=== PATIENT | male | born 1995 | race Caucasian/White ===

== ENCOUNTER 2017-09-17 18:00 | Inpatient (IN) | payer BC ==
[2017-09-17 18:46] LABS: ABS Basophils 0.1 10^3/ul (0-0.2); ABS Eosinophils 0.1 10^3/ul (0-0.6); ABS Lymphocytes 1.9 10^3/ul (1.0-4.8); ABS Monocytes 0.6 10^3/ul (0-0.8); ABS Neutrophils 4.8 10^3/ul (1.5-7.7); ABS Nucleated RBC 0 10^3/ul; Eosinophil % 1.1 % (0-6); Hematocrit 46 % (42-52); Lymphocyte % 25.1 % (25-47); Mean Corpuscular HGB Conc 35 g/dl (31-36); Mean Corpuscular Hemoglobin 29 pg (27-31); Mean Corpuscular Volume 84 fL (80-94); Nucleated Red Blood Cells % 0.1; Platelet Count 289 10^3/ul (150-450); Red Blood Count 5.49 10^6/ul (4.0-5.4); Red Cell Distribution Width 13 % (10.5-15); White Blood Count 7.5 10^3/ul (3.5-10.8)
[2017-09-17 19:07] LABS: EGFR Non-African American 100.9 (>60)
[2017-09-17 20:06] LABS: Urine Appearance Clear; Urine Blood 1+ (Negative); Urine Color Colorless; Urine Ketones Trace (Negative); Urine Protein Negative (Negative); Urine Specific Gravity 1.002 (1.010-1.030); Urine Urobilinogen Negative (Negative)
[2017-09-17] MEDS: Nicotine Inhaler* 10 MG AMP INH ONE (20:16)
[2017-09-17] MEDS: Mouth Piece, Nicotine* 1 EACH CARTRIDGE INH PRN (20:17)
[2017-09-18] MEDS ORDERED: LORazepam TAB(*) 1 MG PO ONE (00:15)
[2017-09-18] MEDS ORDERED: Nicotine Inhaler* 10 MG AMP ONE (00:48)
[2017-09-18] MEDS: Nicotine Inhaler* 10 MG AMP INH ONE (00:54)
[2017-09-18] MEDS ORDERED: Mouth Piece, Nicotine* 1 EACH CARTRIDGE INH ONE (01:49)
--- NOTE | 2017-09-18 08:09 | ED ---
I, Sabrina Stevenson, scribed for Louisa Duran MD on 09/18/17 at 0113 . Progress - Progress Note Progress Note: Patient is signed out from Dr. Velez. Upon initial evaluation at 00:50, patient is pacing and dancing. He admits that he has not slept in days. Also admits to taking drugs. Has flight of ideas. Says he wants to watch TV and stay awake. PE: Pt alert, flight of ideas, cooperative. HEENT: neg Neck supple Cor S1 S2 Lungs clear Abd benign Extrem: no injury, moves all extrem well. Neuro: A O x 3, no focal deficit. Course/Dx - Course Course Of Treatment: Pt given ativan 2mg po at 00:54 on 09/19/27 to try to help him sleep. Patient will be signed out to Dr. Wilkins at shift change. 09/18/17 0700, pending MHE. - Diagnoses Provider Diagnoses: Manic behavior Discharge - Sign-Out/Discharge Documenting (check all that apply): Sign-Out Patient Signing out patient TO: Cuauhtemoc Wilkins - Shift change 09/18/17 0700 - Discharge Plan Condition: Stable Referrals: [facility] [Primary Care Provider] - - Billing Disposition and Condition Condition: STABLE The documentation as recorded by the Graham perez Tiffany accurately reflects the service I personally performed and the decisions made by me, Louisa Duran MD.
--- NOTE | 2017-09-18 09:15 | PN ---
ED Flex Patient Progress Note Date of Service: 09/17/17 Subjective: This is a 21 year-old M who is pending admission to [facility] Unit / transfer to another psychiatric facility / discharge to home / or being observed secondary to bizarre, paranoid behavior. Pt. examined at 0910. He is sleeping comfortably. Social work states that pt. was awake all night and fell asleep around 0500. He still needs to be evaluated by psychiatry. Objective: Vitals: Most recent vital signs documented below. General NAD, Alert and oriented x3. Laboratory: Current laboratory results documented below. Assessment: Plan: Pending psychiatric or medical consultation to observe / transfer / admit / discharge will follow up daily . Vital Signs Temp Pulse Resp BP Pulse Ox 99.9 F 90 16 131/91 97 09/17/17 23:42 09/17/17 23:42 09/18/17 00:54 09/17/17 23:42 09/17/17 23:42 Lab Results - Entire Visit 09/17/17 09/17/17 09/17/17 18:40 18:40 18:26 WBC 7.5 RBC 5.49 H Hgb 16.0 Hct 46 MCV 84 MCH 29 MCHC 35 RDW 13 Plt Count 289 MPV 8.0 Neut % (Auto) 64.9 Lymph % (Auto) 25.1 [place] % (Auto) 8.2 H Eos % (Auto) 1.1 Baso % (Auto) 0.7 Absolute Neuts (auto) 4.8 Absolute Lymphs (auto) 1.9 Absolute Monos (auto) 0.6 Absolute Eos (auto) 0.1 Absolute Basos (auto) 0.1 Absolute Nucleated RBC 0 Nucleated RBC % 0.1 Sodium Potassium Chloride Carbon Dioxide Anion Gap BUN Creatinine Est GFR ( Amer) Est GFR (Non-Af Amer) BUN/Creatinine Ratio Glucose Calcium Total Bilirubin AST ALT Alkaline Phosphatase Total Protein Albumin Globulin Albumin/Globulin Ratio TSH Urine Color Colorless Urine Appearance Clear Urine pH 7.0 Ur Specific Brinkley 1.002 L Urine Protein Negative Urine Ketones Trace A Urine Blood 1+ A Urine Nitrate Negative Urine Bilirubin Negative Urine Urobilinogen Negative Ur Leukocyte Esterase Negative Urine WBC (Auto) Trace(0-5/hpf) Urine RBC (Auto) Trace(0-2/hpf) Urine Bacteria Absent Urine Glucose Negative Salicylates Urine Opiates Screen None detected Acetaminophen Ur Barbiturates Screen None detected Ur Phencyclidine Scrn None detected Ur Amphetamines Screen None detected U Benzodiazepines Scrn None detected Urine Cocaine Screen None detected U Cannabinoids Screen None detected Serum Alcohol 09/17/17 18:26 WBC RBC Hgb Hct MCV MCH MCHC RDW Plt Count MPV Neut % (Auto) Lymph % (Auto) [place] % (Auto) Eos % (Auto) Baso % (Auto) Absolute Neuts (auto) Absolute Lymphs (auto) Absolute Monos (auto) Absolute Eos (auto) Absolute Basos (auto) Absolute Nucleated RBC Nucleated RBC % Sodium 139 Potassium 3.9 Chloride 104 Carbon Dioxide 26 Anion Gap 9 BUN 11 Creatinine 0.96 Est GFR ( Amer) 129.8 Est GFR (Non-Af Amer) 100.9 BUN/Creatinine Ratio 11.5 Glucose 129 H Calcium 9.5 Total Bilirubin 0.80 AST 17 ALT 11 Alkaline Phosphatase 62 Total Protein 7.5 Albumin 4.9 Globulin 2.6 Albumin/Globulin Ratio 1.9 TSH 1.84 Urine Color Urine Appearance Urine pH Ur Specific Brinkley Urine Protein Urine Ketones Urine Blood Urine Nitrate Urine Bilirubin Urine Urobilinogen Ur Leukocyte Esterase Urine WBC (Auto) Urine RBC (Auto) Urine Bacteria Urine Glucose Salicylates < 2.50 Urine Opiates Screen Acetaminophen < 15 Ur Barbiturates Screen Ur Phencyclidine Scrn Ur Amphetamines Screen U Benzodiazepines Scrn Urine Cocaine Screen U Cannabinoids Screen Serum Alcohol < 10
--- NOTE | 2017-09-18 10:10 | ED ---
Kameron Deshpande Angela, scribed for Bobby Velez on 09/17/17 at 1854 . Psychiatric Complaint - HPI Summary HPI Summary: This pt is a 21 y/o male presenting to [facility] via military police officer for a 9.45. Police reports the pt has been acting manic and bizarre for the past 24 hours. Per director social welfare note, pt was involved "in a fraternity hazing experiment no sleep for 24 hours." Pt currently reports he feels tired and fatigued. He states he went to the [employer] building today and called his mother. Pt states he is mildly anxious. Denies SI, HI, auditory or visual hallucinations. Denies any drug use. - History Of Current Complaint Chief Complaint: EDMentalHealth Time Seen by Provider: 09/17/17 18:17 Hx Obtained From: Patient Onset/Duration: Lasting Hours, Still Present Timing: Hours Severity Currently: Moderate Character: Anxious Aggravating Factor(s): Other - no sleep for 24 hours Alleviating Factor(s): Nothing Associated Signs And Symptoms: Positive: Sleep Disturbance. Negative: Hostile, Confused, Hallucinating, Paranoid Behavior Has Suicidal: Denies: Thoughts, With A Plan Has Homicidal: Denies: Thoughts, With A Plan - Allergies/Home Medications Allergies/Adverse Reactions: Allergies Allergy/AdvReac Type Severity Reaction Status Date / Time ciprofloxacin [From Cipro] Allergy Hives Verified 09/17/17 20:00 Home Medications: Home Medications Amphetamine MIXED SALTS TAB* [Adderall TAB*] 20 mg PO DAILY 09/17/17 [History Confirmed 09/17/17] PMH/Surg Hx/FS Hx/Imm Hx Endocrine/Hematology History: Denies: Hx Diabetes Cardiovascular History: Denies: Hx Hypertension Infectious Disease History: No Infectious Disease History: Denies: Traveled Outside the [place] in Last 30 Days - Family History Known Family History: Positive: Diabetes, Other - Cancer - Social History Alcohol Use: None Substance Use Type: Reports: None Smoking Status (MU): Never Smoked Tobacco Review of Systems Positive: Fatigue. Negative: Fever, Chills Cardiovascular: Negative Respiratory: Negative Gastrointestinal: Negative Genitourinary: Negative Musculoskeletal: Negative Psychological: Other - acting bizarre, manic Positive: Anxious. Negative: Other - SI, HI, auditory or visual hallucinations All Other Systems Reviewed And Are Negative: Yes Physical Exam - Summary Physical Exam Summary: Appearance: Well appearing, no pain distress Skin: warm, dry, reflects adequate perfusion Head/face: normal Eyes: EOMI, CHAUNCEY ENT: normal Neck: supple, nontender Respiratory: CTA, breath sounds present Cardiovascular: RRR, pulses symmetrical Abdomen: nontender, soft Bowel: present Musculoskeletal: normal, strength/ROM intact Neuro: normal, sensory motor intact, A&Ox3 Psych: anxious Triage Information Reviewed: Yes Vital Signs On Initial Exam: Initial Vitals Temp Pulse Resp BP Pulse Ox 99.3 F 82 20 127/82 97 09/17/17 18:08 09/17/17 18:08 09/17/17 18:08 09/17/17 18:08 09/17/17 18:08 Vital Signs Reviewed: Yes Diagnostics - Vital Signs Vital Signs Temp Pulse Resp BP Pulse Ox 09/17/17 18:08 99.3 F 82 20 127/82 97 - Laboratory Lab Results: Lab Results 09/17/17 Range/Units 18:26 WBC 7.5 (3.5-10.8) 10^3/ul RBC 5.49 H (4.0-5.4) 10^6/ul Hgb 16.0 (14.0-18.0) g/dl Hct 46 (42-52) % MCV 84 (80-94) fL MCH 29 (27-31) pg MCHC 35 (31-36) g/dl RDW 13 (10.5-15) % Plt Count 289 (150-450) 10^3/ul MPV 8.0 (7.4-10.4) um3 Neut % (Auto) 64.9 (38-83) % Lymph % (Auto) 25.1 (25-47) % [place] % (Auto) 8.2 H (0-7) % Eos % (Auto) 1.1 (0-6) % Baso % (Auto) 0.7 (0-2) % Absolute Neuts (auto) 4.8 (1.5-7.7) 10^3/ul Absolute Lymphs (auto) 1.9 (1.0-4.8) 10^3/ul Absolute Monos (auto) 0.6 (0-0.8) 10^3/ul Absolute Eos (auto) 0.1 (0-0.6) 10^3/ul Absolute Basos (auto) 0.1 (0-0.2) 10^3/ul Absolute Nucleated RBC 0 10^3/ul Nucleated RBC % 0.1 Result Diagrams: 09/17/17 18:26 09/17/17 18:26 Lab Statement: Any lab studies that have been ordered have been reviewed, and results considered in the medical decision making process. Course/Dx - Course Assessment/Plan: Pt is a 21 y/o male presenting to [facility] via military police officer for a 9.45. Police reports the pt has been acting manic and bizarre for the past 24 hours. Pt is medically cleared at 19:42. He is awaiting MHE. At this time mental health evaluation is still pending. Pt will be signed out to Dr. Duran, pending disposition, awaiting MHE. - Differential Dx/Clinical Impression Provider Diagnosis: Acute psychosis Discharge - Sign-Out/Discharge Documenting (check all that apply): Sign-Out Patient Signing out patient TO: Louisa Duran - Discharge Plan Condition: Stable Discharge Disposition Comment: signed out to Dr. Duarn, pending disposition, awaiting MHE Referrals: [facility] [Primary Care Provider] - The documentation as recorded by the Kameron perez Angela accurately reflects the service I personally performed and the decisions made by , Bobby Velez.
--- NOTE | 2017-09-18 14:58 | ED ---
Silvia Deshpande Elizabeth, patriciaibed for Bobby Velez on 09/18/17 at 1440 . Progress - Progress Note Progress Note: Patient is diagnosed with acute psychosis and will be admitted to [facility] [place] [place]. - Consult/PCP Time Called: 07:00 Course/Dx - Diagnoses Provider Diagnoses: Acute psychosis Discharge - Sign-Out/Discharge Documenting (check all that apply): Discharge/Admit/Transfer - Discharge Plan Condition: Stable Disposition: ADMITTED TO [facility] Referrals: [facility] [Primary Care Provider] - The documentation as recorded by the Silvia perez Elizabeth accurately reflects the service I personally performed and the decisions made by Agustin underwood Emmanuel.
[2017-09-18] MEDS: Nicotine Inhaler* 10 MG AMP INH PRN (19:41)
[2017-09-18] MEDS: risperiDONE TAB* 1 MG PO SCH (21:25)
[2017-09-19] MEDS: Nicotine Inhaler* 10 MG AMP INH PRN ×4 (11:20→21:54)
--- NOTE | 2017-09-19 16:39 | HP ---
HISTORY AND PHYSICAL: DATE OF ADMISSION: 09/18/17 IDENTIFYING DATA: Vinayak is a 21-year-old single white male, a senior at [employer], who was brought to the emergency department by law enforcement due to making gestures and raising a concern about his and others' safety in his class. HISTORY OF PRESENT ILLNESS AND REASON FOR HOSPITALIZATION : The patient reports that he is part of a fraternity called [employer] and stayed up entire night and beyond to do some projects and meetings related to politics. He then went to the class and made a hand gesture indicative of having a gun in his hands and making noise of an automatic weapon, which raised concern and his teacher tried to talk to him later and found that his thoughts were pretty disorganized, and they called police on him. He continues to maintain that he just wanted to scare one of his classmates, who was mimicking him or making some noise during a talk he was giving during the fraternity meeting that night. However, he denies any intention of bringing a gun into the class, also denies that he never possessed a gun. He states that his mind has been racing, which keeps him up all night. Most of the nights, he goes to sleep after 2:00 a.m. and wakes up around 7:30 or 8:00 a.m. to go to classes. There are times that he sleeps less than that, but feels well rested and claims that he does not need that much of sleep all the time. 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 It is scattered and talks about different things during the same conversation. He reports that he has been on Adderall since his renea years in high school, prescribed by his primary care physician. Later, he saw a psychiatrist who continued him on Adderall. He acknowledges that it makes him hyper, that is why he tries not to take it after hours, mostly after 5 :00 p.m. or during holidays and sometimes even during the weekends. He also experiences occasional visual hallucinations but denies auditory hallucinations. PAST PSYCHIATRIC HISTORY: This is is 2nd lifetime psychiatric hospitalization, first one in [place] ( Reported by his parents ) but he has been seeing a psychiatrist in [place] for ADHD and continues to see a nurse practitioner in this community, who is continuing him on the same medicine. 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 PAST MEDICAL HISTORY: Unremarkable. ALLERGIES: No known drug allergies. FAMILY HISTORY: He has 2 younger siblings, a brother and a sister, both of them where diagnosed with ADHD. Mternal Grand mother was diagnosed and treated for Bipolar D/O. He believes his father also has ADHD and his mother is okay. PERSONAL AND SOCIAL HISTORY: Vinayak is from [place] [place] [place]. After high school, he came to [place] with an intention to transfer to [employer]. He is majoring in photography and filming and wants to be a filmmaker in the future. He is currently involved in a romantic relationship and he is sexually active only when she is around. He lives in the community and goes to college, would not say much about his grades, but appears to be repeatedly getting in conflict with his classmates and teachers. PHYSICAL EXAMINATION GENERAL: At this time Vinayak is not in any physical distress. He is healthy looking, average height, average weight, white male, somewhat fidgety, restless , and makes frequent hand gestures. VITAL SIGNS: Vitals taken show blood pressure of 119/69, respirations 16, pulse 76, temperature 98.5 degrees Fahrenheit, pulse ox 100% on room air. HEENT: Head: Normocephalic, atraumatic. Eyes: PERRLA, EOMI. Clear conjunctivae. Ears: Normal and clean ear canals with intact tympanic membranes bilaterally. NECK: Supple with midline trachea. No lymphadenopathy, enlarged thyroid, or JVD. CHEST: Lungs are clear with good air entry bilaterally. No wheezing or rhonchi audible. CARDIOVASCULAR: Heart rate regular with S1 and S2 only. No murmurs or rubs audible. ABDOMEN: Flat, soft, nontender. No organomegaly. Positive bowel sounds in all quadrants. MUSCULOSKELETAL: Muscle strength normal, intact range of movement of all joints. Pulses good in all extremities. NEUROLOGICAL: Alert and oriented to time, place, and person. Cranial nerves II through XII intact. No focal deficits. MENTAL STATUS EXAMINATION: Appropriately dressed, poorly groomed, average height male, who appears to be healthy without any indication of any physical distress. He is fidgety and restless, makes frequent hand gestures indicative of shooting guns of that nature. He is alert and oriented to time, place, and person. His speech appears to be mildly pressured and circumstantial , needs frequent redirection to stay on the topic. Thought process is illogical and thought content appears to have some delusions such as his ability to be a politician and a leader and involvement in activities in the school. His attention and concentration appear to be fair to good. Intelligence appears to be average as evidenced by his vocabulary and fund of knowledge. Memory functions are intact in all spheres. He denies any suicidal ideation; however, unsure about homicidal ideation because he pauses during this question if he is thinking about hurting anyone in his class, and then states "no, I would never do that," after a brief pause. His insight and judgment are impaired. LABORATORY DATA: Included CBC with differential, CMP, urinalysis, and tox screen with urine drug screen. CBC shows a WBC count of 10.5, hemoglobin 12.4, hematocrit 36, platelet count 257. Rest unremarkable. CMP shows a serum sodium level of 137, potassium 3.7, chloride 103, carbon dioxide 28, BUN 11, creatinine 0.9. Urinalysis unremarkable. Tox screen negative. Urine drug screen negative for all street drugs. SUMMARY: This 21-year-old male with history of treatment only on an outpatient basis for ADHD presented to the emergency room, brought in by local law enforcement after he made hand gestures and made sound of automatic weapon in his class to scare one of his classmates according to his own reporting. He has been staying up for an extended period of time, [id number], and experiencing racing thoughts as well as delusions of grandeur. Although he denies any homicidal thoughts at this time, he made enough of gestures and sound of automatic weapon in his class to scare his classmates and possibly the teacher, who was concerned about his and others' safety. DIAGNOSTIC IMPRESSION: MENTAL HEALTH DIAGNOSES: Unspecified psychosis, rule out substance-induced psychosis, rule out substance-induced mood disorder, rule out schizophrenia. PHYSICAL HEALTH DIAGNOSIS: None. TREATMENT RECOMMENDATIONS: For now, Vinayak will remain hospitalized on behavioral science unit for his and others' safety. His code status will remain full. Supportive milieu, individual, and group therapy will be initiated and the patient will be encouraged to attend. Different treatment options including starting him on Risperdal as a routine medication was explained. Also, a plan to keep him off his attention deficit hyperactivity disorder meds, which is Adderall to keep that on hold at least for now. He verbalized his understanding and wants to try this plan, which means take Risperdal and keep his stimulants on hold until his assigned psychiatrist on the unit can decide whether to continue or discontinue his stimulants, which in my opinion has been causing mood dysregulation as well as psychosis. He may continue to do well on Risperdal and some major mood stabilizer in the future. I also have doubt about his diagnosis of ADHD; however, that needs to be done in a more methodical way than just giving him a diagnosis of ADHD only because of his lack of attention. All the nursing observations and my personal observation indicate more of mood dysregulation and hypomanic symptoms than attention deficit hyperactivity. [id number]/[facility] #: [id number] DALIA
[2017-09-19] MEDS: risperiDONE TAB* 1 MG PO SCH (20:27)
[2017-09-20] MEDS ORDERED: LORazepam TAB(*) 1 MG PO ONE (00:45)
[2017-09-20] MEDS ORDERED: LORazepam TAB(*) 1 MG ONE (00:49)
[2017-09-20] MEDS: Nicotine Inhaler* 10 MG AMP INH PRN ×2 (00:55→14:16)
--- NOTE | 2017-09-20 10:32 | ADMNOTE ---
History - Objective HPI: Psychiatric Attending History and Physical NAME: : AGE: PROVIDER: DATE OF ADMISSION: JUSTIFICATION FOR ADMISSION: CHIEF COMPLAINT: HISTORY OF THE PRESENT ILLNESS: PAST PSYCHIATRIC HISTORY: SUBSTANCE ABUSE HISTORY: PAST MEDICAL HISTORY: CURRENT MEDICATIONS: ALLERGIES: FAMILY PSYCHIATRIC HISTORY: FAMILY/PSYCHOSOCIAL HISTORY: REVIEW OF SYSTEMS: all noncontributory per hospitalist Dr. Mohr on / / PHYSICAL EXAMINATION: UNREMARKABLE (NORMAL PHYSICAL EXAMINATION) per hospitalist Dr. Mohr on / / . Patient MENTAL STATUS EXAMINATION: LABORATORY DATA: IMPRESSION: DIAGNOSES: PLAN: Plan - Treatment Plan Medications: Current Medications Device (Nicotine Mouth Piece*) 1 each INH .USE WITH NICOTROL PRN PRN Reason: CRAVING Last Admin: 09/17/17 20:17 Dose: 1 each Nicotine (Nicotine Inhaler*) 10 mg INH Q2H PRN PRN Reason: CRAVING Last Admin: 09/20/17 00:55 Dose: 10 mg Risperidone (Risperdal*) 1 mg PO BEDTIME MINH Last Admin: 09/19/17 20:27 Dose: 1 mg
--- NOTE | 2017-09-20 11:57 | PN ---
Subjective - Subjective Subjective: Psychiatric Attending Progress Note: interviewed patient and father separately and then together. Admission H and P reveiwed as well as nursing and physicians notes from over the weekend. Patient is a 21 yo IC magdaleno with a history of polysubstance abuse including marijuana, LSD, Xanax and prescribed adderall overuse. [facility] communications professional sw requested patient be brought to hospital for evaluation of 1 to 2 week history of mood lability(elation, irritability), pressured speech, decreased need for sleep, racing thoughts, and bizarre behaviors (singing, dancing, grabbing at the air) in public areas on campus. mental status acutely worsened 24 hours prior to being brought to the ED in the context of a fraternity hazing experiment which required patient deprive himself of sleep x 24 hours. [facility] checked on patient 3 times on day ASSOCIATE ART DIRECTOR due to psychomotor agitation and bizarre behaviors. According to parents Bron was in his usual state of mental health and they had no indication that he was unstable until a day ASSOCIATE ART DIRECTOR when they were notified by campus counselor. patient was pacing, restless, pressured, im pulsive, pushing boundaries, displayed accelerated psychomotor behavior in the Flex unit. He was initially unable to sleep staring at hands, dancing and pacing in the flex room. while watching TV he was mimicking the TV and firing finger guns playfully. His verbal responses were described as bizarre and irrelevant. patient ultimately fell asleep and slept 12 hours in flex unit and was admitted to [facility] wednesday late afternoon. on unit first day he was manic, disorganized, restless, excessively talkative, grabbing at the air, tangential, intrusive and argumentative but not aggressive, violent or professing danger to self. with risperdal on wednesday night patient slept 12 hours over night. woke up at 11 am but continued to be bizarre but coooperative with nursing. dancing, pacing, continuing to have VH, euphoric and grandiose. wednesday night unable to sleep. given ativan 1 mg at 1 am for sleep and slept until late this morning (11 hours total). PPH/substance history: per parents and patient. Siva struggled with attentional deficits, low self esteem, social awkwardness, difficulty making friends, poor impulse control since early chidlhood. grades were always inconsistent. began suffering with depression in high school saw therapist but never medication until 11 th grade when he was diagnosed with ADD by psychiatrist and started on Adderall XR 20 mg daily. also 5 to 10 IR in afternoon. patient admits that he would sell his Adderall. Marijuana use was heavy in high school and was abusing Xanax intermittently. Senior year began using LSD intermittently and drinking alcohol. Fresh year was using xanax, marijuana, LSD, Alcohol and overusing prescription Adderall. did poorly but passed first semester. did fairly well second semester. end of y ear [place] and had first hospitalization for jaime and psychosis similar to current presentation. felt to be drug induced and was sent to dual diagnosis PHP in [facility]. patient reports he was sober for about 6 weeks while in program. subsequently developed severe depression with SI and plan to jump off gorge. but no attempt. Was started on Prozac and Zyprexa and returned to [place]. saw counselor at [facility] and OFFICE EXECUTIVE Varsha Be for medication. medication was ultimately discontinued with exception of Adderall XR, adderall IR and clonidine for sleep. Patient admits to using LSD at least 5 times during sophmore year. States he has continued smoking pot, overusing adderall, and intermittently using LSD and Xanax, although he reports frequency has been low for all drugs. Urine tox negative in ED PMH none Allergies Cipro Social History: two siblings and parents all [employer] graduates. patient feels inferior to family members two sibs have ADHD. Mat GM has diagnosed Bipolar disrorder. no legal probelms. denies history of trauma, denies legal issues, has girlfriend who goes to school back in [place]. MSE: well dressed good hygiene inconsistent eye contact. indiscriminantly related. +psychomotor acccerleration symptoms including restlessness, pacing, waving arms purposely in air, excessive speech. Mood: euphoric, inflated. affect elevated amplitude, broad range. Thought process is tangential and circumstantial Thought content reveals: patient endorses racing thoughts, inability to fall asleep, decreased need for sleep, inflated self concept, increased preoccupation with gnosticism themes, grandiose thoughts, need to keep dancing and singing, perseveration with certain topics incluidng music videos. alert and oriented. highly distractible. cogntive exam not completed as patient could not tolerate it. insight partial. judgment: at present time is poor denies SI, HI intention or plan to harm self or others. denies paranoia. denies hearing voices or having visual hallucinations (other than hearing the music of his favorite songs in his head). Labs: reviewed and are normal including urine tox which is negative for all drugs of abuse Impression: my impression is that patient has bipolar disorder and is presenting with manic episode with psychotic features.which was likely unmasked by polysubstance use including use of LSD on 08/22/17 and use of cannabis on 09/10/2017. Plan: long discussion with patient and his father about my impression and recommendations which are that patient has serious drug addiction and comorbid bipolar disorder presenting with two episodes of jaime. told them that continued drug use could result in treatment refractory illness. discussed importance of sobriety and bipolar maintenance and abortive medication forbipolar mood swings. both father and patient gave informed consent to zuly mata. should not return to college this semester but complete finals when he recovers. my recommendation would be inpatient dur rehab program after mood is stabalized as an inpatient. MMPI and psych. eval. social work consultation. Plan - Plan Treatment Plan: Name: ESTELLA BENNETT Birthdate: 1995 [id number] Medications: Current Medications Device (Nicotine Mouth Piece*) 1 each INH .USE WITH NICOTROL PRN PRN Reason: CRAVING Last Admin: 09/17/17 20:17 Dose: 1 each Nicotine (Nicotine Inhaler*) 10 mg INH Q2H PRN PRN Reason: CRAVING Last Admin: 09/20/17 00:55 Dose: 10 mg Risperidone (Risperdal*) 1 mg PO BEDTIME [facility] Last Admin: 09/19/17 20:27 Dose: 1 mg
[2017-09-20] MEDS ORDERED: Divalproex ER TAB(*) 250 MG PO ONE ×2 (15:40→21:00)
[2017-09-20] MEDS: LORazepam TAB(*) 0.5 MG PO SCH (16:31)
[2017-09-21] MEDS: LORazepam TAB(*) 1 MG PO SCH ×2 (03:00→20:28)
[2017-09-21] MEDS: risperiDONE TAB* 1 MG PO SCH ×3 (03:00→20:28)
[2017-09-21] MEDS: Nicotine Inhaler* 10 MG AMP INH PRN ×5 (03:41→20:27)
[2017-09-21] MEDS: LORazepam TAB(*) 0.5 MG PO SCH ×2 (08:54→16:24)
[2017-09-21] MEDS ORDERED: Acetaminophen TAB* 325 MG PO PRN (10:42)
[2017-09-21] MEDS: Nicotine PATCH 7 MG/24 HR* PATCH TRANSDERM SCH (10:50)
--- NOTE | 2017-09-21 11:37 | PN ---
MHU: Group Therapy Note - Service Type Service Type: [id number] Group Psychotherapy - Cognitive Behavioral Group Therapy ( CBT):Patient presented in CBT programming as disorganized and disruptive in discussion and needed repeated redirection to attend to presented materials.
--- NOTE | 2017-09-21 12:50 | PN ---
Subjective - Subjective Subjective: Psychiatric Attending Progress Note: attending selective groups. Napped in the afternoon yesterday after receiving additional ativan and risperdal (which was increased yesterday due to ongoing manic symptoms). slept about 8 hours last night. Patient has attended some groups today. He continues to present as oddly related. overall psychomotor behavior has diminished considerably since yesterday. less pressured, less talkative, no longer pacing but able to remain still during entire interview today. more organized and less bizarre. appropriately responding today. no tangential or irrelevant responses. affect remains incongruent. clearly patient is exerting effort to suppress manic symptoms in order to appear better than he actually is. animal care worker and I met with Siva. I discussed my diagnostic impression that he has bipolar disorder type I and that drug use is increasing the severity of the disorder and ultimately will contribute to making his bipolar illness difficult to treat (the concept of treatment refractory illness). patient was also confronted with treatment recommendations which are that he not return to school but take Incompletes and make up his tests late summer. I also told patient that my recommendation was that he enter an inpatient drug rehab program for minimum of 30 days Patient's response was clearly not in favor of this. He told me that he wanted to return to school and the reason was because "all of my professors really like me" Patient was not capable of processing what was related in today's sesssion. He then cut the meeting short, stating he would like to delay the rest of the discussion until his mother arrives in the morning. He requested computer privelages so he could listen to music videos and the meeting ended with patient thanking me several times for making computer privelages available to himm Objective - Appearance Appearance: Well Developed/Nourished, Healthy Appearing Dysmorphic Features: No Hygiene: Normal Grooming: Well Kept - Behavior Psychomotor Activities: Normal Exhibits Abnormal Movement: No - Attitude and Relatedness Attitude and Relatedness: Psychotically Related Eye Contact: Fair - Speech Quality: Unpressured Latencies: Normal Quantity: Appropriate - Mood Patient's Decription of Mood: "Great" - Affect Observed Affect: Expansive Affect Consistent with: Euphoria - Thought Process Patient's Thought Process: Circumstantial Thought Content: No Passive Wish, No Suicidal Planning, No Homicidal Ideation, No Paranoid Ideation - Sensorium Type of Hallucinations: Visual: No, Auditory: No, Command: No - Level of Consciousness Level of Consciousness: Alert Orientation: Yes Intact, Yes Orientated to Time, Yes Orientated to Place, Yes Orientated to Person - Impulse Control Impulse Control: Impaired - Insight and Judgement Insight and Judgement: Poor - Medication Management Medication Management Adherence: Yes Assessment - Assessment Clinical Impression: 21 year old with bipolar I and polysubstance use admitted 2 days ago for one week history of acute jaime with psychotic features. patient is responding to combination of depakote ER, Risperdal and ativan. he [facility] for [facility] Plan - Plan Treatment Plan: Plan: family meeting to discuss d/c options continue med adjustment as needed VPA level in two days Risperdal 0.25 mg BId and 1 mg qhs ativan 0.5 mg BId and 1 mg QHS depakote ER 750 mg qhs Medications: Current Medications Acetaminophen (Tylenol Tab*) 650 mg PO Q4H PRN PRN Reason: PAIN Al Hydrox/Mg Hydrox/Simethicone (Maalox Plus*) 30 ml PO Q4H PRN PRN Reason: DYSPEPSIA Device (Nicotine Mouth Piece*) 1 each INH .USE WITH NICOTROL PRN PRN Reason: CRAVING Last Admin: 09/17/17 20:17 Dose: 1 each Divalproex Sodium (Depakote Er Tab(*)) 750 mg PO BEDTIME [facility] Lorazepam (Ativan Tab(*)) 0.5 mg PO BID@ [facility] Last Admin: 09/21/17 08:54 Dose: 0.5 mg Lorazepam (Ativan Tab(*)) 1 mg PO BEDTIME [facility] Last Admin: 09/21/17 03:00 Dose: Not Given Nicotine (Nicotine Inhaler*) 10 mg INH Q2H PRN PRN Reason: CRAVING Last Admin: 09/21/17 07:44 Dose: 10 mg Nicotine (Nicotine Patch 7 Mg/24 Hr*) 1 patch TRANSDERM DAILY [facility] Last Admin: 09/21/17 10:50 Dose: 1 patch Pharmacy Profile Note (Nicotine Patch Removal Note*) 1 note FOLLOW UP 2100 [facility] Risperidone (Risperdal*) 1 mg PO BEDTIME [facility] Last Admin: 09/21/17 05:03 Dose: 1 mg Risperidone (Risperdal) 0.25 mg PO BID@ [facility] Last Admin: 09/21/17 08:54 Dose: 0.25 mg
[2017-09-21] MEDS: Nicotine Patch Removal NOTE FOLLOW UP SCH (20:29)
[2017-09-21] MEDS ORDERED: Divalproex ER TAB(*) 250 MG PO SCH (21:00)
[2017-09-22] MEDS: risperiDONE TAB* 1 MG PO SCH ×3 (11:25→20:32)
[2017-09-22] MEDS: Nicotine PATCH 7 MG/24 HR* PATCH TRANSDERM SCH (11:26)
[2017-09-22] MEDS: LORazepam TAB(*) 0.5 MG PO SCH ×2 (11:28→15:59)
[2017-09-22] MEDS: Mouth Piece, Nicotine* 1 EACH CARTRIDGE INH PRN (11:49)
[2017-09-22] MEDS: Nicotine Inhaler* 10 MG AMP INH PRN ×3 (11:50→22:11)
--- NOTE | 2017-09-22 12:16 | PN ---
Subjective - Subjective Subjective: Psychiatric Attending Progress Note: continues to make gains daily. manic symptoms are remitting nicely with combination of Risperdal, Ativan and Depakote ER. Slept 13 hours last night. has been declining daytime ativan as it makes him sedated. otherwise has been taking all other meds. cooperative with nurses. no agitation. attending all groups. no bizarre behaviors today. no singing or dancing. no moving his fingers through the air indicating his euphoria when music is played. Met with patient alone today and his father subsequently joined us. mood much more stable today. no euphoria today. mood best described as hyperthymic which appears to be patient's baseline and is common mood state for patients with ADHD. thought process coherent, logical and organized. no tangentiality. no irrelevant or illogic constructs. continues to be hyperverbal, distractible, somewhat impulsive verbally, insecure, lacks confidence, compares himself to peers, never feels he neasures up, impusivity has resulted in difficulties initiating and maintaining friendships, somewhat disorganized, forgetful, and has trouble with follow through. These qualities all consistent with ADHD. fairly immature socially. tends to be a leader rather than a follower. discussed future d/c recommendations in session. father has arranged with Frederick for Siva to take make up exams in his classes in summer or later so he does not have to return to school which is my recommendation. I strongly recommend patient do inpatient drug rehab. He attended outpatient rehab IOP after first manic episode one year ago. He tells me that he was discharged from hospital last year on zyprexa. He saw a psychiatrist in [place] who stopped zyprexa and started him on prozac when he became severely depressed over the summer. Siva promised to remain sober and that he would follow up with therapist and medication provider. He has seen therapist infrequently over past year. He has seen Louisa Blum NP only a few times in order to get refills on his adderall and clonidine FAther confronted him with his failure to follow through father also not sure he wants pateint to return to parents are thinking that pateint should return home and attend local college for a year to prove that he can take care of his medical needs and abstain from drugs. I am in agreement with this plan. Objective - Appearance Appearance: Well Developed/Nourished Dysmorphic Features: No Hygiene: Normal Grooming: Well Kept - Behavior Psychomotor Activities: Abnormal-Increased Exhibits Abnormal Movement: No - Attitude and Relatedness Attitude and Relatedness: Cooperative Eye Contact: Good - Speech Quality: Unpressured Latencies: Normal Quantity: Appropriate - Mood Patient's Decription of Mood: "Great" - Affect Observed Affect: Expansive Affect Consistent with: Euphoria - Thought Process Patient's Thought Process: Goal Directed Thought Content: No Passive Wish, No Suicidal Planning, No Homicidal Ideation, No Paranoid Ideation - Sensorium Experiencing Hallucinations: No, Sensorium is Clear Type of Hallucinations: Visual: No, Auditory: No, Command: No - Level of Consciousness Level of Consciousness: Alert Orientation: Yes Intact, Yes Orientated to Time, Yes Orientated to Place, Yes Orientated to Person - Impulse Control Impulse Control: Intact - Insight and Judgement Insight and Judgement: Poor - Group Participation Particating in Group Activities: Yes - Medication Management Medication Management Adherence: Yes Assessment - Assessment Clinical Impression: 21 year old with bipolar I and polysubstance use admitted 5 days ago for one week history of acute jaime with psychotic features. patient is responding to combination of depakote ER, Risperdal and ativan. [facility]. Plan - Plan Treatment Plan: Plan: father leaving tomorrow and mother will take his place plan is to speak with mother by phone tomorrow to discuss discharge plans d/c ativan 0.5 mg BID depakote ER 750 mg daily to be changed to q dinner as Siva is having abdominal pain after taking it. Risperdal 0.5 mg BId and 1 mg QHS get VPA level tomorrow night will suggest parents consider [facility] which has a 30 day drug rehab recovery program.
[2017-09-22] MEDS: Al Hydrox/Mg Hydrox/Simet LIQ* 30 ML UDC PO PRN (14:57)
[2017-09-22] MEDS ORDERED: Divalproex ER TAB(*) 250 MG PO ONE (18:16)
[2017-09-22] MEDS: LORazepam TAB(*) 1 MG PO SCH (20:32)
[2017-09-22] MEDS: Nicotine Patch Removal NOTE FOLLOW UP SCH (20:33)
[2017-09-23] MEDS: Nicotine Inhaler* 10 MG AMP INH PRN ×5 (09:16→22:11)
[2017-09-23] MEDS: CMCS: Atomoxetine (NF) 40 MG CAP PO SCH (09:16)
[2017-09-23] MEDS: Nicotine PATCH 7 MG/24 HR* PATCH TRANSDERM SCH (09:17)
[2017-09-23] MEDS: risperiDONE TAB* 1 MG PO SCH ×3 (09:17→22:56)
--- NOTE | 2017-09-23 11:02 | PN ---
Subjective - Subjective Subjective: Psychiatric Attending Progress Note: significant remission of manic symptoms. continues with inappropriately elevated affect at time. an almost forced or excessive ardor. patient lacks insight about this but it is quite striking at times. thought process is logical and coherent. Patient remains elevated in his mood and affect. there remains a disconnect in [facility] with regard to the seriousness of current issues and the immediacy. He remains almost too agreeable and offers no resistance to the discharge plans which social professionals and I have recommended when meeting with him. However, to his parents and his friends (who visited him yesterday) he shares that he is not in favor of inpatient dual diagnosis program. Objective - Appearance Appearance: Well Developed/Nourished Dysmorphic Features: No Hygiene: Normal Grooming: Well Kept - Behavior Psychomotor Activities: Abnormal-Increased Exhibits Abnormal Movement: No - Attitude and Relatedness Attitude and Relatedness: Superficially Cooperative - Speech Quality: Unpressured Latencies: Normal Quantity: Appropriate - Mood Patient's Decription of Mood: "Great" - Affect Observed Affect: Expansive Affect Consistent with: Euphoria - Thought Process Patient's Thought Process: Coherent Thought Content: No Passive Wish, No Suicidal Planning, No Homicidal Ideation, No Paranoid Ideation - Sensorium Experiencing Hallucinations: No, Sensorium is Clear Type of Hallucinations: Visual: No, Auditory: No, Command: No - Level of Consciousness Level of Consciousness: Alert Orientation: Yes Intact, Yes Orientated to Time, Yes Orientated to Place, Yes Orientated to Person - Impulse Control Impulse Control: Tenuous - Insight and Judgement Insight and Judgement: Poor - Group Participation Particating in Group Activities: Yes - Medication Management Medication Management Adherence: Yes Assessment - Assessment Clinical Impression: 21 year old with bipolar I and polysubstance use admitted 6 days ago for acute jaime with psychotic features. patient is responding to combination of depakote ER, Risperdal and ativan. [facility] and appropriate discharge planning Plan - Plan Treatment Plan: Plan: father leaving tomorrow and mother will be flying in to take his place Family meeting has been scheduled with mother at 4 pm tomorrow Depakote ER 750 mg q dinner (no abdominal pain today) Risperdal 0.5 mg BId and 1 mg QHS VPA level, cbc, lft's tomorrow evening d/c recommendation will be for patient to be admitted to dual diagnosis residential inpatient program for young adults patient and father are aware and we will discuss this again with mother and patient at tomorrow's meeting. Medications: Current Medications Acetaminophen (Tylenol Tab*) 650 mg PO Q4H PRN PRN Reason: PAIN Al Hydrox/Mg Hydrox/Simethicone (Maalox Plus*) 30 ml PO Q4H PRN PRN Reason: DYSPEPSIA Last Admin: 09/22/17 14:57 Dose: 30 ml Atomoxetine HCl (Strattera (Nf)) 40 mg PO DAILY [facility] PRN Reason: Protocol Last Admin: 09/23/17 09:16 Dose: 40 mg Device (Nicotine Mouth Piece*) 1 each INH .USE WITH NICOTROL PRN PRN Reason: CRAVING Last Admin: 09/22/17 11:49 Dose: 1 each Divalproex Sodium (Depakote Er Tab(*)) 750 mg PO DAILY@17 [facility] Lorazepam (Ativan Tab(*)) 1 mg PO BEDTIME [facility] Last Admin: 09/22/17 20:32 Dose: 1 mg Nicotine (Nicotine Inhaler*) 10 mg INH Q2H PRN PRN Reason: CRAVING Last Admin: 09/23/17 09:16 Dose: 10 mg Nicotine (Nicotine Patch 7 Mg/24 Hr*) 1 patch TRANSDERM DAILY [facility] Last Admin: 09/23/17 09:17 Dose: 1 patch Pharmacy Profile Note (Nicotine Patch Removal Note*) 1 note FOLLOW UP 2100 [facility] Last Admin: 09/22/17 20:33 Dose: 1 note Risperidone (Risperdal*) 1 mg PO BEDTIME [facility] Last Admin: 09/22/17 20:32 Dose: 1 mg Risperidone (Risperdal*) 0.5 mg PO BID@09,16 [facility] Last Admin: 09/23/17 09:17 Dose: 0.5 mg
[2017-09-23] MEDS: Divalproex ER TAB(*) 250 MG PO SCH (16:46)
[2017-09-23] MEDS: Nicotine Patch Removal NOTE FOLLOW UP SCH (22:56)
[2017-09-23] MEDS: LORazepam TAB(*) 1 MG PO SCH (22:56)
[2017-09-24] MEDS: CMCS: Atomoxetine (NF) 40 MG CAP PO SCH (08:52)
[2017-09-24] MEDS: Nicotine PATCH 7 MG/24 HR* PATCH TRANSDERM SCH (08:53)
[2017-09-24] MEDS: risperiDONE TAB* 1 MG PO SCH ×3 (08:53→20:29)
[2017-09-24] MEDS: Nicotine Inhaler* 10 MG AMP INH PRN ×5 (10:40→20:45)
--- NOTE | 2017-09-24 12:42 | PN ---
Subjective - Subjective Subjective: Psychiatric Attending Progress Note: Patient slept well last night. attending all groups. no bizarre behaviors. mood remains inappropriately elevated affect with elevated amplitude, with a forced quality still too elevated. thought process is coherent and goal directed as well as linear. denies AH,VH, SI,HI is not delusional. pateint is highly dependent on others opinions and looks to adults to make decisions for him. this is good as he has expressed his intention to go with whatever discharge plan his parents choose for him. Mother arrived today from [place]. Family meeting held with patient's mother, patient, SW Zakiya Sutton and myself present. We discussed progress that Siva has made. mother in agreement that he has made significant gains since first being admitted almost one week ago. if 5 is euthymic and 10 is manic. she wouldplace Siva at 6. we discussed recommendations of team which is that Siva go from here [place] [facility] for minimum of 4. parents given names of several excellent programs but encouraged to reasearch that on their own and present sw with names of programs that they wish us to make application to on wednesday. alternatively if they decide against inpatient treatment for their son, we will set patient up with an outpatient [facility] dual diagnosis program in the [place] area. Mother related that she will discuss with her . we all agreed to meet again on Wednesday for a family meeting to solidify d/c plans. Discharge will likely be for 09/28/2017 Objective - Appearance Appearance: Well Developed/Nourished Dysmorphic Features: No Hygiene: Normal Grooming: Well Kept - Behavior Psychomotor Activities: Abnormal-Increased Exhibits Abnormal Movement: No - Attitude and Relatedness Attitude and Relatedness: Superficially Cooperative Eye Contact: Fair - Speech Quality: Unpressured Latencies: Normal Quantity: Appropriate - Mood Patient's Decription of Mood: "Great" - Affect Observed Affect: Euphoric - Thought Process Patient's Thought Process: Coherent Thought Content: No Passive Wish, No Suicidal Planning, No Homicidal Ideation, No Paranoid Ideation - Sensorium Type of Hallucinations: Visual: No, Auditory: No, Command: No - Level of Consciousness Orientation: Yes Intact, Yes Orientated to Time, Yes Orientated to Place, Yes Orientated to Person - Impulse Control Impulse Control: Intact - Insight and Judgement Insight and Judgement: Poor - Group Participation Particating in Group Activities: Yes - Medication Management Medication Management Adherence: Yes Assessment - Assessment Clinical Impression: 21 year old with bipolar I and polysubstance use admitted 5 days ago for one week history of acute jaime with psychotic features. patient is responding to combination of depakote ER, Risperdal and ativan. he continues to require [facility] level [facility] care for stabalization. Plan - Plan Treatment Plan: Plan: medication unchanged blood today for VPA trough, cbc, lft's q30 min ordered, staff pass allowed and computer [facility] family meeting on wednesday08/28/2017 d/c plan is inpatient dual diagnosis or outpatient IOP d/c date likely to be 09/28/2017 Medications: Current Medications Acetaminophen (Tylenol Tab*) 650 mg PO Q4H PRN PRN Reason: PAIN Al Hydrox/Mg Hydrox/Simethicone (Maalox Plus*) 30 ml PO Q4H PRN PRN Reason: DYSPEPSIA Last Admin: 09/22/17 14:57 Dose: 30 ml Atomoxetine HCl (Strattera (Nf)) 40 mg PO DAILY [facility] PRN Reason: Protocol Last Admin: 09/24/17 08:52 Dose: 40 mg Device (Nicotine Mouth Piece*) 1 each INH .USE WITH NICOTROL PRN PRN Reason: CRAVING Last Admin: 09/22/17 11:49 Dose: 1 each Divalproex Sodium (Depakote Er Tab(*)) 750 mg PO DAILY@17 [facility] Last Admin: 09/23/17 16:46 Dose: 750 mg Lorazepam (Ativan Tab(*)) 1 mg PO BEDTIME [facility] Last Admin: 09/23/17 22:56 Dose: 1 mg Nicotine (Nicotine Inhaler*) 10 mg INH Q2H PRN PRN Reason: CRAVING Last Admin: 09/24/17 10:40 Dose: 10 mg Nicotine (Nicotine Patch 7 Mg/24 Hr*) 1 patch TRANSDERM DAILY [facility] Last Admin: 09/24/17 08:53 Dose: 1 patch Pharmacy Profile Note (Nicotine Patch Removal Note*) 1 note FOLLOW UP 2100 [facility] Last Admin: 09/23/17 22:56 Dose: 1 note Risperidone (Risperdal*) 1 mg PO BEDTIME [facility] Last Admin: 09/23/17 22:56 Dose: 1 mg Risperidone (Risperdal*) 0.5 mg PO BID@09,16 [facility] Last Admin: 09/24/17 08:53 Dose: 0.5 mg
[2017-09-24] MEDS: Divalproex ER TAB(*) 250 MG PO SCH (17:03)
[2017-09-24] MEDS: diPHENhydraMINE PO* 25 MG PO SCH (20:29)
[2017-09-24] MEDS: LORazepam TAB(*) 1 MG PO SCH (21:08)
[2017-09-24] MEDS: Nicotine Patch Removal NOTE FOLLOW UP SCH (21:08)
[2017-09-25] MEDS: Nicotine Inhaler* 10 MG AMP INH PRN ×5 (09:43→21:09)
[2017-09-25] MEDS: Nicotine PATCH 7 MG/24 HR* PATCH TRANSDERM SCH (09:44)
[2017-09-25] MEDS: CMCS: Atomoxetine (NF) 40 MG CAP PO SCH (09:44)
[2017-09-25] MEDS: Al Hydrox/Mg Hydrox/Simet LIQ* 30 ML UDC PO PRN (10:28)
[2017-09-25] MEDS: Divalproex ER TAB(*) 250 MG PO SCH (17:35)
[2017-09-25 19:22] LABS: ABS Basophils 0 10^3/ul (0-0.2); ABS Eosinophils 0.2 10^3/ul (0-0.6); ABS Lymphocytes 3.2 10^3/ul (1.0-4.8); ABS Monocytes 0.5 10^3/ul (0-0.8); ABS Neutrophils 4.2 10^3/ul (1.5-7.7); ABS Nucleated RBC 0 10^3/ul; Eosinophil % 2.3 % (0-6); Hematocrit 46 % (42-52); Hemoglobin 15.9 g/dl (14.0-18.0); Lymphocyte % 39.3 % (25-47); Mean Corpuscular HGB Conc 35 g/dl (31-36); Mean Corpuscular Hemoglobin 30 pg (27-31); Mean Corpuscular Volume 84 fL (80-94); Mean Platelet Volume 7.7 um3 (7.4-10.4); Nucleated Red Blood Cells % 0.1; Platelet Count 268 10^3/ul (150-450); Red Blood Count 5.41 10^6/ul (4.0-5.4); Red Cell Distribution Width 13 % (10.5-15); White Blood Count 8.2 10^3/ul (3.5-10.8)
[2017-09-25] MEDS: Mouth Piece, Nicotine* 1 EACH CARTRIDGE INH PRN (21:09)
[2017-09-25] MEDS: Nicotine Patch Removal NOTE FOLLOW UP SCH (21:10)
[2017-09-25] MEDS: risperiDONE TAB* 2 MG PO SCH (21:28)
[2017-09-25] MEDS: diPHENhydraMINE PO* 25 MG PO SCH (21:28)
[2017-09-25] MEDS: LORazepam TAB(*) 1 MG PO SCH (22:13)
[2017-09-26] MEDS: Nicotine Inhaler* 10 MG AMP INH PRN ×4 (12:06→21:16)
[2017-09-26] MEDS: Nicotine PATCH 7 MG/24 HR* PATCH TRANSDERM SCH (12:06)
[2017-09-26] MEDS: CMCS: Atomoxetine (NF) 40 MG CAP PO SCH (12:07)
[2017-09-26] MEDS: Divalproex ER TAB(*) 250 MG PO SCH (17:44)
[2017-09-26] MEDS: Al Hydrox/Mg Hydrox/Simet LIQ* 30 ML UDC PO PRN (18:07)
[2017-09-26] MEDS: risperiDONE TAB* 2 MG PO SCH (21:15)
[2017-09-26] MEDS: Nicotine Patch Removal NOTE FOLLOW UP SCH (21:15)
[2017-09-26] MEDS: diPHENhydraMINE PO* 25 MG PO SCH (22:52)
[2017-09-26] MEDS: LORazepam TAB(*) 1 MG PO SCH (23:26)
[2017-09-27] MEDS: Nicotine Inhaler* 10 MG AMP INH PRN ×5 (09:51→21:32)
[2017-09-27] MEDS: CMCS: Atomoxetine (NF) 40 MG CAP PO SCH (09:52)
[2017-09-27] MEDS: Nicotine PATCH 7 MG/24 HR* PATCH TRANSDERM SCH (11:08)
[2017-09-27] MEDS ORDERED: risperiDONE TAB* 3 MG PO SCH (11:12)
--- NOTE | 2017-09-27 11:30 | PN ---
Subjective - Subjective Subjective: Psychiatric Attending Progress Note: Nursing notes over weekend reveal patient continues to exhibit odd behaviors. in particular he makes waving motions with his hands in the air while he waling. also noted that patient will be in group, seated listening to research group director or be sitting with his mother during weekend visitation and then abruptly he will get up from his seat and walk away from the activity or conversation that he was engaged in. He will then pace around the room and randomly gesticulate by waving one or both hands in the air. earlier today, he was found squatting in front of the comfort room. I asked him about this. he reports that he was just waiting for his turn. He states that he spoke with nursing earlier and reminded them that he wanted comfort room time but that this had not occurred. When asked if he believed squatting would call attention to the fact that he had not been given comfort room time, he told me know, he was not trying to get nurses attention. I pointed out to him that I still had no understanding of why he was squatting in front of the door. patient denies being dulusional, he denies that he is performing a ritual in his mind or that the hand gestures are preventing something bad from occurring. He is unable to give me an explanation for his bizarre hand movements. Patient's mood remains excessively elevated. he denies being suicidal or homicidial He does not appear paranoid. I spoke with mother about whether she had researched programs. She called some of the options I gave her but felt overwhelmed in terms of knowing what would best suit his needs. She and feel that Siva's behaivors remain too bizarre and that he still not in reality. He told mother that he was interested in becoming the president of the [employer] someday. She also reported that he still seems too elevated in terms of his mood. they feel that his affect continues to be unnaturally happy and that he makes very superficial, overly courteous statements which appear insincere almost scripted. She feels that he is not sharing everything that he is feeling. I agree with this completely. Impression: Bipolar disorder manic severe with grandiosity and bizarre behaiovrs (rule out psychosis) Patient continues to demonstrate manic symptoms which seem to have escalated over the weekend. He also may be delusional and/or responding to internal stimuli. patient requires ongoing inpatient treatment until jaime and psychosis have remitted Plan: increase Risperdal to 3 mg qhs increase depakote ER from 750 mg to 1250 mgQHS benadryl 25 mg qhs increase ativan to 2 mg qhs parents not in favor of inpatient as majority of tuition is not covered by insurance and runs 18 to 30 thousand dollars per month. we will solidify outpatient [facility]. Assessment - Assessment Clinical Impression: 21 year old with bipolar I and polysubstance use admitted 5 days ago for one week history of acute jaime with psychotic features. patient is responding to combination of depakote ER, Risperdal and ativan. [facility]. Plan - Plan Treatment Plan: Plan: medication unchanged blood today for VPA trough, cbc, lft's q30 min ordered, staff pass allowed and computer [facility] family meeting on wednesday08/28/2017 d/c plan is inpatient dual diagnosis or outpatient [facility] d/c date likely to be 09/28/2017 Medications: Current Medications Acetaminophen (Tylenol Tab*) 650 mg PO Q4H PRN PRN Reason: PAIN Al Hydrox/Mg Hydrox/Simethicone (Maalox Plus*) 30 ml PO Q4H PRN PRN Reason: DYSPEPSIA Last Admin: 09/26/17 18:07 Dose: 30 ml Atomoxetine HCl (Strattera (Nf)) 80 mg PO DAILY [facility] PRN Reason: Protocol Device (Nicotine Mouth Piece*) 1 each INH .USE WITH NICOTROL PRN PRN Reason: CRAVING Last Admin: 09/25/17 21:09 Dose: 1 each Diphenhydramine HCl (Benadryl Po*) 25 mg PO BEDTIME [facility] Last Admin: 09/26/17 22:52 Dose: 25 mg Divalproex Sodium (Depakote Er Tab(*)) 1,000 mg PO DAILY@17 [facility] Lorazepam (Ativan Tab(*)) 2 mg PO BEDTIME [facility] Nicotine (Nicotine Inhaler*) 10 mg INH Q2H PRN PRN Reason: CRAVING Last Admin: 09/27/17 09:51 Dose: 10 mg Nicotine (Nicotine Patch 7 Mg/24 Hr*) 1 patch TRANSDERM DAILY [facility] Last Admin: 09/27/17 11:08 Dose: 1 patch Pharmacy Profile Note (Nicotine Patch Removal Note*) 1 note FOLLOW UP 2100 [facility] Last Admin: 09/26/17 21:15 Dose: 1 note Risperidone (Risperdal*) 3 mg PO BEDTIME [facility]
[2017-09-27] MEDS ORDERED: Divalproex ER TAB(*) 500 MG PO SCH (17:00)
[2017-09-27] MEDS: Divalproex ER TAB(*) 500 MG PO SCH (17:28)
[2017-09-27] MEDS: Divalproex ER TAB(*) 250 MG PO SCH (17:28)
[2017-09-27] MEDS: Nicotine Patch Removal NOTE FOLLOW UP SCH (20:28)
[2017-09-27] MEDS ORDERED: LORazepam TAB(*) 1 MG PO SCH (21:00)
[2017-09-27] MEDS: diPHENhydraMINE PO* 25 MG PO SCH (21:31)
[2017-09-28] MEDS ORDERED: CMC:Atomoxetine (NF) 40 MG CAP PO SCH (09:00)
[2017-09-28] MEDS: Nicotine PATCH 7 MG/24 HR* PATCH TRANSDERM SCH (09:26)
[2017-09-28 09:28] VITALS: BP 102/59
[2017-09-28] MEDS: Nicotine Inhaler* 10 MG AMP INH PRN ×3 (10:49→16:49)
--- NOTE | 2017-09-28 12:57 | DS ---
Treatment Course & Assessment Clinical Course & Impression: 21 year old with bipolar I and polysubstance use admitted 5 days ago for one week history of acute jaime with psychotic features. patient is responding to combination of depakote ER, Risperdal and ativan. [facility] Discharge Planning - Discharge Planning Medications: Current Medications Acetaminophen (Tylenol Tab*) 650 mg PO Q4H PRN PRN Reason: PAIN Al Hydrox/Mg Hydrox/Simethicone (Maalox Plus*) 30 ml PO Q4H PRN PRN Reason: DYSPEPSIA Last Admin: 09/26/17 18:07 Dose: 30 ml Atomoxetine HCl (Strattera (Nf)) 80 mg PO DAILY [facility] PRN Reason: Protocol Last Admin: 09/28/17 09:28 Dose: 80 mg Device (Nicotine Mouth Piece*) 1 each INH .USE WITH NICOTROL PRN PRN Reason: CRAVING Last Admin: 09/25/17 21:09 Dose: 1 each Diphenhydramine HCl (Benadryl Po*) 25 mg PO BEDTIME [facility] Last Admin: 09/27/17 21:31 Dose: 25 mg Divalproex Sodium (Depakote Er Tab(*)) 1,000 mg PO DAILY@17 [facility] Last Admin: 09/27/17 17:28 Dose: 1,000 mg Divalproex Sodium (Depakote Er Tab(*)) 250 mg PO 1700 [facility] Last Admin: 09/27/17 17:28 Dose: 250 mg Lorazepam (Ativan Tab(*)) 2 mg PO BEDTIME [facility] Last Admin: 09/27/17 20:27 Dose: 2 mg Nicotine (Nicotine Inhaler*) 10 mg INH Q2H PRN PRN Reason: CRAVING Last Admin: 09/28/17 10:49 Dose: 10 mg Nicotine (Nicotine Patch 7 Mg/24 Hr*) 1 patch TRANSDERM DAILY [facility] Last Admin: 09/28/17 09:26 Dose: 1 patch Pharmacy Profile Note (Nicotine Patch Removal Note*) 1 note FOLLOW UP 2100 [facility] Last Admin: 09/27/17 20:28 Dose: 1 note Risperidone (Risperdal*) 3 mg PO BEDTIME [facility] Last Admin: 09/27/17 20:28 Dose: 3 mg Discharge Planning: Prescriptions provided for discharge [] Yes [] No Follow up care details as per social work arrangements. Patient response to discharge plan: [] eager for discharge [] agreeable with discharge plan [] ambivalent about discharge [] disagrees with discharge today
--- NOTE | 2017-09-28 13:05 | PN ---
[facility]: Group Therapy Note - Service Type Service Type: [id number] Group Psychotherapy - Cognitive Behavioral Group Therapy ( CBT):Patient was attentive and participatory in CBT programming this morning, and remained in good behavioral control. Patient expressed positive insights regarding relevant treatment interventions and goals.
[2017-09-28] MEDS: Mouth Piece, Nicotine* 1 EACH CARTRIDGE INH PRN (13:21)
[2017-09-28] MEDS: Al Hydrox/Mg Hydrox/Simet LIQ* 30 ML UDC PO PRN (16:07)
[2017-09-28] MEDS: Divalproex ER TAB(*) 500 MG PO SCH (17:12)
[2017-09-28] MEDS: Divalproex ER TAB(*) 250 MG PO SCH (17:12)
== END 2017-09-28 17:42 | disposition home or self-care (01) | DRG 753 ==
LOC: ED 18:00 → BSU 09-18 14:48
PROVIDERS: ADMIT Psychiatry & Neurology Psychiatry; ATTEND Psychiatry & Neurology Psychiatry
PROC: GZHZZZZ Group Psychotherapy (ICD-10-PCS; principal; 2017-09-21)
DX: F31.2 Bipolar disorder, current episode manic severe with psychotic features (principal); F90.9 Attention-deficit hyperactivity disorder, unspecified type; F12.90 Cannabis use, unspecified, uncomplicated; F15.90 Other stimulant use, unspecified, uncomplicated; Z88.1 Allergy status to other antibiotic agents; Z83.3 Family history of diabetes mellitus; Z80.9 Family history of malignant neoplasm, unspecified; Z81.8 Family history of other mental and behavioral disorders
CPT/HCPCS: 36415; 80053; 80076; 80164; 80307; 80320; 80329; 81003; 81015; 84443; 85025; 87086; 90853; 99222; 99231; 99232; 99238; 99285; A9270-GY; G0480

== ENCOUNTER 2018-03-31 15:49 | Emergency (ER) | payer BC ==
[2018-03-31 16:00] VITALS: BP 104/66
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
[2018-03-31] MEDS ORDERED: DOXYcycline CAP(*) 100 MG PO ONE (17:35)
[2018-03-31] MEDS: DOXYcycline CAP(*) 100 MG PO ONE ×2 (17:48→17:49)
== END 2018-03-31 17:50 | disposition home or self-care (01) ==
LOC: UCEAST 15:49
DX: S06.0X0A Concussion without loss of consciousness, initial encounter (principal); S00.81XA Abrasion of other part of head, initial encounter; S20.20XA Contusion of thorax, unspecified, initial encounter; V17.0XXA Pedal cycle driver injured in collision with fixed or stationary object in nontraffic accident, initial encounter; Y93.55 Activity, bike riding; Y92.488 Other paved roadways as the place of occurrence of the external cause; Y99.8 Other external cause status; J01.90 Acute sinusitis, unspecified; Z88.0 Allergy status to penicillin
CPT/HCPCS: 70450; 70486; 71046; 72125; 99212; A9270-GY; G0463

== ENCOUNTER 2018-04-19 20:00 | Emergency (ER) | payer BC ==
[2018-04-19 20:13] VITALS: BP 115/72
--- NOTE | 2018-04-19 20:24 | UC ---
General HPI - HPI Summary HPI Summary: 22-year-old male here because he [facility]. He's had for the his bipolar disorder. He is provider that typically prescribes it is out of town for the week. Is also been having some crusting in the left eye. He did have contacts and he took them out. No pain in the eye and there is some crusting. - History of Current Complaint Chief Complaint: UCMedRefill Stated Complaint: MED REFILL Time Seen by Provider: 04/19/18 20:05 Pain Intensity: 0 - Allergy/Home Medications Allergies/Adverse Reactions: Allergies Allergy/AdvReac Type Severity Reaction Status Date / Time amoxicillin [From Augmentin] Allergy Hives Verified 04/19/18 20:07 ciprofloxacin [From Cipro] Allergy Hives Verified 04/19/18 20:07 clavulanic acid Allergy Hives Verified 04/19/18 20:07 [From Augmentin] Home Medications: Home Medications ARIPiprazole [Abilify] 5 mg PO DAILY 04/19/18 [History Confirmed 04/19/18] PMH/Surg Hx/FS Hx/Imm Hx Previously Healthy: Yes Psychological History: Bipolar Disorder Other Psychological History: adhd - Surgical History Surgical History: Yes Surgery Procedure, Year, and Place: APPENDECTOMY AGE 11 - Family History Known Family History: Positive: Diabetes, Other - Cancer - Social History Alcohol Use: Occasionally Substance Use Type: Marijuana Substance Use Comment - Amount & Last Used: occasionally Smoking Status (MU): Never Smoked Tobacco Amount Used/How Often: VAPE Have You Smoked in the Last Year: No - Immunization History Most Recent Tetanus Shot: UNSURE Review of Systems All Other Systems Reviewed And Are Negative: Yes Constitutional: Positive: Negative Skin: Positive: Negative Eyes: Positive: Drainage - left, Eye Redness - left ENT: Positive: Negative Respiratory: Positive: Negative Cardiovascular: Positive: Negative Gastrointestinal: Positive: Negative Motor: Positive: Negative Neurovascular: Positive: Negative Musculoskeletal: Positive: Negative Neurological: Positive: Negative Psychological: Positive: Negative Is Patient Immunocompromised?: No Physical Exam Triage Information Reviewed: Yes Appearance: Well-Appearing, No Pain Distress, Well-Nourished Vital Signs: Initial Vital Signs Temp 98.8 F 04/19/18 20:09 Pulse 93 04/19/18 20:09 Resp 18 04/19/18 20:09 BP 115/72 04/19/18 20:09 Pulse Ox 98 04/19/18 20:09 Vital Signs Reviewed: Yes Eyes: Positive: Conjunctiva Inflamed - left, Discharge - left ENT: Positive: Pharynx normal, TMs normal. Negative: Nasal congestion, Nasal drainage Neck exam: Normal Neck: Positive: Supple Respiratory: Positive: Lungs clear, Normal breath sounds, No respiratory distress Cardiovascular: Positive: RRR Musculoskeletal Exam: Normal Musculoskeletal: Positive: Strength Intact, ROM Intact Neurological Exam: Normal Neurological: Positive: Alert, Muscle Tone Normal Psychological Exam: Normal Psychological: Positive: Normal Response To Family, Age Appropriate Behavior Skin Exam: Normal Course/Dx - Course Course Of Treatment: Patient has follow-up scheduled for April 25, 2018 with his mental health provider. - Diagnoses Provider Diagnosis: Conjunctivitis, left eye, Bipolar disorder Discharge - Sign-Out/Discharge Documenting (check all that apply): Patient Departure All imaging exams completed and their final reports reviewed: No Studies - Discharge Plan Condition: Stable Disposition: HOME Prescriptions: ARIPiprazole [Abilify] 5 mg PO DAILY #30 tablet Tobramycin 0.3% OPHTH.ELKE* 1 drop LEFT EYE Q4H #1 btl Patient Education Materials: Bipolar Disorder (ED), Conjunctivitis (ED) Referrals: Louisa Blum NP [Primary Care Provider] - Additional Instructions: FOLLOW UP WITH YOUR DOCTOR ON 04/25/18 SCHEDULED. GET RECHECKED FOR ANY WORSENING OF YOUR CONDITION OR QUESTIONS OR CONCERNS. - Billing Disposition and Condition Condition: STABLE Disposition: Home
== END 2018-04-19 20:30 | disposition home or self-care (01) ==
LOC: UCEAST 20:00
DX: H10.9 Unspecified conjunctivitis (principal); F31.9 Bipolar disorder, unspecified; Z76.0 Encounter for issue of repeat prescription; Z88.0 Allergy status to penicillin; Z88.1 Allergy status to other antibiotic agents
CPT/HCPCS: 99212; G0463

== ENCOUNTER 2020-06-13 16:14 | Inpatient (IN) ==
[2020-06-13 17:32] LABS: Urine Appearance Clear; Urine Bilirubin Negative (Negative); Urine Blood Negative (Negative); Urine Color Straw; Urine Glucose Negative (Negative); Urine Ketones Negative (Negative); Urine Nitrite Negative (Negative); Urine Protein Negative (Negative); Urine Specific Gravity 1.005 (1.010-1.030); Urine Urobilinogen Negative (Negative)
[2020-06-13 17:43] LABS: ABS Basophils 0.1 10^3/ul (0-0.2); ABS Eosinophils 0.2 10^3/ul (0-0.6); ABS Lymphocytes 2.6 10^3/ul (1.0-4.8); ABS Monocytes 0.5 10^3/ul (0-0.8); ABS Neutrophils 4.7 10^3/ul (1.5-7.7); Eosinophil % 2.4 %; Hematocrit 50 % (42-52); Hemoglobin 17.7 g/dL (14.0-18.0); Lymphocyte % 32.2 %; Mean Corpuscular HGB Conc 35 g/dL (31-36); Mean Corpuscular Hemoglobin 30 pg (27-31); Mean Corpuscular Volume 85 fL (80-94); Mean Platelet Volume 8.1 fL (7.4-10.4); Platelet Count 292 10^3/uL (150-450); Red Blood Count 5.89 10^6 /uL (4.18-5.48); Red Cell Distribution Width 13 % (10-15); White Blood Count 8.1 10^3/uL (3.5-10.8)
[2020-06-13 17:47] LABS: Urine Benzodiazepine Screen None Detected (None Detect); Urine Cannabinoids Screen Presumptive Positive (None Detect); Urine Opiates Screen None Detected (None Detect)
[2020-06-13 18:00] LABS: ALT 58 U/L (7-52); AST 26 U/L (13-39); Albumin 4.6 g/dL (3.2-5.2); Albumin/Globulin Ratio 1.7 (1-3); Alkaline Phosphatase 61 U/L (34-104); Anion Gap 5 mmol/L (2-11); Blood Urea Nitrogen 10 mg/dL (6-24); CO2 Carbon Dioxide 30 mmol/L (22-32); Calcium 9.3 mg/dL (8.6-10.3); Chloride 103 mmol/L (101-111); EGFR African American 152.9 (>60); EGFR Non-African American 126.3 (>60); Globulin 2.7 g/dL (2-4); Glucose 100 mg/dL (70-100); Potassium 3.9 mmol/L (3.5-5.0); Sodium 138 mmol/L (135-145); Total Protein 7.3 g/dL (6.4-8.9)
[2020-06-13 18:25] LABS: Acetaminophen < 15 mcg/mL; Alcohol, S < 10 mg/dL (<10); Salicylate < 2.50 mg/dL (<30)
[2020-06-13 18:33] LABS: TSH Ultra Thyroid Stim Horm 1.27 mcIU/mL (0.34-5.60)
[2020-06-13 20:05] LABS: Lithium < 0.10 mmol/L (0.6-1.2)
[2020-06-13] MEDS ORDERED: [UNRECOGNIZED DRUG - REMARK] PO (21:12)
[2020-06-13] MEDS ORDERED: Al Hydrox/Mg Hydrox/Simet LIQ 30 ML UDC PO PRN (21:12)
[2020-06-14] MEDS: Vitamin THERAPEUTIC TAB PO SCH ×2 (12:35→13:48)
[2020-06-14] MEDS: Nicotine PATCH 14 MG/24 HR PATCH TRANSDERM SCH (13:49)
[2020-06-14] MEDS: Nicotine GUM 2MG FRUIT FLAVOR PO PRN (13:50)
[2020-06-15] MEDS: Nicotine PATCH 14 MG/24 HR PATCH TRANSDERM SCH (11:16)
[2020-06-15] MEDS: Nicotine GUM 2MG FRUIT FLAVOR PO PRN ×4 (11:16→23:41)
[2020-06-15] MEDS: Vitamin THERAPEUTIC TAB PO SCH (11:16)
[2020-06-16] MEDS: Nicotine GUM 2MG FRUIT FLAVOR PO PRN ×3 (09:20→18:04)
[2020-06-16] MEDS: Vitamin THERAPEUTIC TAB PO SCH (09:20)
[2020-06-16] MEDS: Nicotine PATCH 14 MG/24 HR PATCH TRANSDERM SCH (09:22)
[2020-06-17] MEDS: Nicotine PATCH 14 MG/24 HR PATCH TRANSDERM SCH (08:12)
[2020-06-17] MEDS: Vitamin THERAPEUTIC TAB PO SCH (08:12)
[2020-06-17] MEDS: Nicotine GUM 2MG FRUIT FLAVOR PO PRN ×3 (08:12→20:30)
[2020-06-17 09:01] LABS: HDL Cholesterol 26.9 mg/dL
[2020-06-17 09:16] LABS: Lithium 0.14 mmol/L (0.6-1.2)
[2020-06-18] MEDS: Vitamin THERAPEUTIC TAB PO SCH (08:56)
[2020-06-18] MEDS: Nicotine GUM 2MG FRUIT FLAVOR PO PRN ×3 (08:56→20:21)
[2020-06-18] MEDS: Nicotine PATCH 14 MG/24 HR PATCH TRANSDERM SCH (08:57)
[2020-06-19] MEDS: Vitamin THERAPEUTIC TAB PO SCH (09:34)
[2020-06-19] MEDS: Nicotine GUM 2MG FRUIT FLAVOR PO PRN ×4 (09:34→20:01)
[2020-06-19] MEDS: Nicotine PATCH 14 MG/24 HR PATCH TRANSDERM SCH (12:50)
[2020-06-20 10:03] VITALS: BP 138/90
[2020-06-20] MEDS: Nicotine PATCH 14 MG/24 HR PATCH TRANSDERM SCH (10:56)
[2020-06-20] MEDS: Vitamin THERAPEUTIC TAB PO SCH (10:56)
== END 2020-06-20 11:25 | disposition home or self-care (01) | DRG 753 ==
LOC: ED 16:14 → BSU 18:40
PROVIDERS: ADMIT Psychiatry & Neurology Psychiatry; ATTEND Psychiatry & Neurology Psychiatry